=== PATIENT | male | born 1950 | race African-American/Black ===

== ENCOUNTER 2022-03-22 18:01 | Emergency (ER) | payer BC ==
[2022-03-22] MEDS ORDERED: ACETAMINOPHEN 1000 MG/100 ML BAG IVPB ONE (18:26)
[2022-03-22 18:28] VITALS: BP 152/75; PULSE 63; TEMP 98.2; BMI 27.8
[2022-03-22] MEDS ORDERED: ACETAMINOPHEN INJECTION 100 ML IVPB ONE (18:38)
[2022-03-22 19:05] LABS: BASO % 1.1 % (0-2.0); EOS % 3.5 % (0-4.5); HEMATOCRIT 40.6 % (35.4-49); HEMOGLOBIN 13.9 GM/dL (11.7-16.9); LYMPH % 47.6 % (8-40); MCH 32.9 pg (25.7-33.7); MCHC 34.4 g/dl (32.0-35.9); MEAN CELL VOLUME 95.7 fl (80-96); MEAN PLT VOLUME 8.6 fl (7.5-11.1); MONO % 8.4 % (3.8-10.2); NEUT % 39.4 % (42.8-82.8); PLATELET COUNT 134 10^3/uL (134-434); RBC 4.24 M/mm3 (4.00-5.60); RDW 13.7 % (11.9-15.9); WHITE BLOOD COUNT 4.5 K/mm3 (4.0-10.0)
[2022-03-22 19:23] LABS: CALCIUM 9.2 mg/dL (8.5-10.1)
[2022-03-22 19:24] LABS: ALBUMIN 3.9 g/dl (3.4-5.0)
[2022-03-22 19:27] LABS: CREATININE 1.1 mg/dL (0.55-1.3)
[2022-03-22 19:28] LABS: TOT PROT 6.6 g/dl (6.4-8.2)
[2022-03-22 19:29] LABS: BILIRUBIN,TOTAL 0.8 mg/dL (0.2-1)
== END 2022-03-22 20:42 | disposition home or self-care (01) ==
LOC: JER 18:01
PROC: 3E033NZ Introduction of Analgesics, Hypnotics, Sedatives into Peripheral Vein, Percutaneous Approach (ICD-10-PCS; principal; 2022-03-22)
DX: I10 Essential (primary) hypertension (principal)
CPT/HCPCS: 36415; 70450-TC; 80053; 84484; 85025; 99284-25

== ENCOUNTER 2022-04-09 18:49 | Emergency (ER) | payer BC, OTHER ==
[2022-04-09 18:56] VITALS: TEMP 98; BMI 27.4
[2022-04-09 23:00] LABS: BASO % 0.9 % (0-2.0); EOS % 2.9 % (0-4.5); HEMATOCRIT 44.6 % (35.4-49); LYMPH % 45.4 % (8-40); MCH 32.4 pg (25.7-33.7); MCHC 33.6 g/dl (32.0-35.9); MEAN CELL VOLUME 96.3 fl (80-96); MEAN PLT VOLUME 8.2 fl (7.5-11.1); MONO % 8.3 % (3.8-10.2); NEUT % 42.5 % (42.8-82.8); PLATELET COUNT 146 10^3/uL (134-434); RBC 4.63 M/mm3 (4.00-5.60); RDW 13.3 % (11.9-15.9); WHITE BLOOD COUNT 4.5 K/mm3 (4.0-10.0)
[2022-04-09 23:03] LABS: INR 1.25 (0.83-1.09); PROTHROMBIN TIME (PATIENT) 14.4 SEC (9.7-13.0)
[2022-04-09 23:06] LABS: ACTIVATED PTT 26.9 SECONDS (25.2-36.5)
[2022-04-09 23:23] LABS: CALCIUM 9.1 mg/dL (8.5-10.1)
[2022-04-09 23:24] LABS: ALBUMIN 3.7 g/dl (3.4-5.0); BLOOD UREA NITROGEN 12.3 mg/dL (7-18); MAGNESIUM 2.6 mg/dL (1.8-2.4)
[2022-04-09 23:27] LABS: CREATININE 1.1 mg/dL (0.55-1.3)
[2022-04-09 23:28] LABS: BILIRUBIN,TOTAL 0.7 mg/dL (0.2-1)
[2022-04-09 23:29] LABS: TOT PROT 6.6 g/dl (6.4-8.2)
[2022-04-10 00:31] VITALS: BP 131/69; PULSE 72
== END 2022-04-10 02:48 ==
LOC: JER 18:49
DX: I48.91 Unspecified atrial fibrillation (principal)
CPT/HCPCS: 36415; 74177-TC; 80053; 83735; 84484; 85025; 85610; 85730; 93005; 93010; 99285-25; Q9967

== ENCOUNTER 2023-08-08 08:10 | Emergency (ER) | payer BC, OTHER ==
[2023-08-08 08:41] VITALS: TEMP 98.2; BMI 27.1
[2023-08-08] MEDS ORDERED: FAMOTIDINE 20 MG/50 ML IVPB 20 MG/50 ML MG IVPB ONE (09:09)
[2023-08-08] MEDS ORDERED: MAG HYDROX/AL HYDROX/SIMETH -MYLANTA- ORAL SUSPENSION PO ONE (09:09)
[2023-08-08] MEDS ORDERED: ACETAMINOPHEN 1000 MG/100 ML BAG IVPB ONE (09:10)
[2023-08-08] MEDS ORDERED: MAG HYDROX/AL HYDROX/SIMETH 30 ML UNIT-DOSE CUP ONE (09:23)
[2023-08-08] MEDS ORDERED: ACETAMINOPHEN INJECTION 100 ML IVPB ONE (09:23)
[2023-08-08 09:24] LABS: INR 1.33 (0.83-1.09); PROTHROMBIN TIME (PATIENT) 15.4 SEC (9.7-13.0)
[2023-08-08] MEDS ORDERED: FAMOTIDINE 10 MG/ML VIAL IVPB ONE (09:24)
[2023-08-08 09:27] LABS: ACTIVATED PTT 28.3 SECONDS (25.2-36.5); BASO % 0.7 % (0-2.0); EOS % 1.6 % (0-4.5); HEMATOCRIT 44.3 % (35.4-49); HEMOGLOBIN 14.6 GM/dL (11.7-16.9); LYMPH % 22.9 % (8-40); MCH 31.9 pg (25.7-33.7); MCHC 32.9 g/dl (32.0-35.9); MEAN CELL VOLUME 96.9 fl (80-96); MEAN PLT VOLUME 8.6 fl (7.5-11.1); MONO % 7.6 % (3.8-10.2); NEUT % 67.2 % (42.8-82.8); PLATELET COUNT 176 10^3/uL (134-434); RBC 4.57 M/mm3 (4.00-5.60); RDW 13.7 % (11.9-15.9); WHITE BLOOD COUNT 5.9 K/mm3 (4.0-10.0)
[2023-08-08 09:42] LABS: CALCIUM 9.6 mg/dL (8.5-10.1)
[2023-08-08 09:43] LABS: BLOOD UREA NITROGEN 18.1 mg/dL (7-18); MAGNESIUM 2.6 mg/dL (1.8-2.4)
[2023-08-08 09:45] LABS: CREATININE 1.2 mg/dL (0.55-1.3)
[2023-08-08 09:47] LABS: BILIRUBIN,TOTAL 1.6 mg/dL (0.2-1); TOT PROT 7.2 g/dl (6.4-8.2)
[2023-08-08 12:00] VITALS: BP 133/57; PULSE 78; RESP 16
== END 2023-08-08 11:59 | disposition home or self-care (01) ==
LOC: JER 08:10
PROC: 3E033GC Introduction of Other Therapeutic Substance into Peripheral Vein, Percutaneous Approach (ICD-10-PCS; principal; 2023-08-08)
PROC: 3E033GC Introduction of Other Therapeutic Substance into Peripheral Vein, Percutaneous Approach (ICD-10-PCS; 2023-08-08)
DX: R07.9 Chest pain, unspecified (principal); R10.13 Epigastric pain
CPT/HCPCS: 36415; 71045-TC-FY; 80053; 83690; 83735; 84484; 85025; 85610; 85730; 93005; 93010; 99285-25

== ENCOUNTER 2024-01-28 23:56 | Emergency (ER) | payer OTHER ==
[2024-01-29 00:01] VITALS: BP 169/83; PULSE 58; RESP 18; TEMP 97; BMI 26.7
[2024-01-29] MEDS ORDERED: ACETAMINOPHEN INJECTION 100 ML IVPB ONE (01:35)
[2024-01-29] MEDS ORDERED: FAMOTIDINE 20 MG/50 ML IVPB 20 MG/50 ML MG IVPB ONE (01:36)
[2024-01-29] MEDS ORDERED: MAG HYDROX/AL HYDROX/SIMETH 30 ML UNIT-DOSE CUP ONE (01:36)
[2024-01-29] MEDS: MAG HYDROX/AL HYDROX/SIMETH 30 ML UNIT-DOSE CUP PO ONE (01:40)
[2024-01-29] MEDS: ACETAMINOPHEN 1000 MG/100 ML BAG IVPB ONE (01:40)
[2024-01-29] MEDS: FAMOTIDINE 20 MG/50 ML IVPB 20 MG/50 ML MG IVPB ONE (01:41)
[2024-01-29 01:44] LABS: EOS % 3.4 % (0-4.5); HEMATOCRIT 36.8 % (35.4-49); HEMOGLOBIN 12.4 GM/dL (11.7-16.9); LYMPH % 41.7 % (8-40); MCH 31.7 pg (25.7-33.7); MCHC 33.6 g/dl (32.0-35.9); MEAN CELL VOLUME 94.4 fl (80-96); MEAN PLT VOLUME 8.3 fl (7.5-11.1); MONO % 9.9 % (3.8-10.2); PLATELET COUNT 169 10^3/uL (134-434); RBC 3.89 M/mm3 (4.00-5.60); RDW 13.4 % (11.9-15.9); WHITE BLOOD COUNT 3.9 K/mm3 (4.0-10.0)
[2024-01-29 01:58] LABS: POTASSIUM 4.3 mmol/L (3.5-5.1)
[2024-01-29 02:00] LABS: BLOOD UREA NITROGEN 12.5 mg/dL (7-18)
[2024-01-29 02:06] LABS: BILIRUBIN,TOTAL 0.6 mg/dL (0.2-1); CALCIUM 9.1 mg/dL (8.5-10.1)
[2024-01-29 02:07] LABS: ALBUMIN 3.4 g/dl (3.4-5.0)
[2024-01-29 02:11] LABS: CREATININE 0.9 mg/dL (0.55-1.3)
[2024-01-29 02:13] LABS: TOT PROT 6.2 g/dl (6.4-8.2)
[2024-01-29] MEDS: ASPIRIN 81 MG CHEWABLE TABLETS PO ONE (03:07)
== END 2024-01-29 04:13 | disposition home or self-care (01) ==
LOC: JER 23:56
PROC: 3E033GC Introduction of Other Therapeutic Substance into Peripheral Vein, Percutaneous Approach (ICD-10-PCS; principal; 2024-01-29)
PROC: 3E033GC Introduction of Other Therapeutic Substance into Peripheral Vein, Percutaneous Approach (ICD-10-PCS; 2024-01-29)
DX: R00.2 Palpitations (principal); R12 Heartburn
CPT/HCPCS: 36415; 71045-TC-FY; 80053; 84484; 85025; 93005; 93010; 99285-25; J0131

== ENCOUNTER 2024-05-07 22:30 | Emergency (ER) | payer OTHER ==
[2024-05-07 22:38] VITALS: BP 158/64; PULSE 56; RESP 16; TEMP 98.1; BMI 25.7
[2024-05-07] MEDS ORDERED: ACETAMINOPHEN INJECTION 100 ML IVPB ONE (23:05)
[2024-05-07] MEDS ORDERED: MAG HYDROX/AL HYDROX/SIMETH 30 ML UNIT-DOSE CUP ONE (23:06)
[2024-05-07] MEDS ORDERED: FAMOTIDINE 20 MG/50 ML IVPB 20 MG/50 ML MG IVPB ONE (23:06)
[2024-05-07] MEDS: MAG HYDROX/AL HYDROX/SIMETH -MYLANTA- ORAL SUSPENSION PO ONE (23:58)
[2024-05-08 00:01] LABS: BASO % 0.8 % (0-2.0); EOS % 1.9 % (0-4.5); HEMATOCRIT 39.8 % (35.4-49); HEMOGLOBIN 13.2 GM/dL (11.7-16.9); LYMPH % 39.9 % (8-40); MCH 31.2 pg (25.7-33.7); MCHC 33.2 g/dl (32.0-35.9); MEAN PLT VOLUME 8.6 fl (7.5-11.1); NEUT % 49.4 % (42.8-82.8); PLATELET COUNT 152 10^3/uL (134-434); RBC 4.23 M/mm3 (4.00-5.60); RDW 15.9 % (11.9-15.9); WHITE BLOOD COUNT 4.9 K/mm3 (4.0-10.0)
[2024-05-08 00:20] LABS: POTASSIUM 4.3 mmol/L (3.5-5.1)
[2024-05-08 00:22] LABS: CALCIUM 9.5 mg/dL (8.5-10.1)
[2024-05-08 00:23] LABS: ALBUMIN 3.9 g/dl (3.4-5.0); BLOOD UREA NITROGEN 12.9 mg/dL (7-18); MAGNESIUM 2.2 mg/dL (1.8-2.4)
[2024-05-08 00:26] LABS: CREATININE 0.9 mg/dL (0.55-1.3)
[2024-05-08 00:27] LABS: BILIRUBIN,TOTAL 1.3 mg/dL (0.2-1); TOT PROT 6.9 g/dl (6.4-8.2)
[2024-05-08] MEDS: FAMOTIDINE 20 MG/50 ML IVPB 20 MG/50 ML MG IVPB ONE (00:34)
[2024-05-08] MEDS: ACETAMINOPHEN 1000 MG/100 ML BAG IVPB ONE (00:34)
[2024-05-08] MEDS: MAG HYDROX/AL HYDROX/SIMETH -MYLANTA- ORAL SUSPENSION PO ONE (00:35)
[2024-05-08] MEDS ORDERED: LIDOCAINE VISCOUS 2% ORAL/TOP 15 ML UNIT-DOSE CUP ONE (00:37)
[2024-05-08] MEDS ORDERED: FAMOTIDINE 10 MG TABLET ONE (00:37)
[2024-05-08] MEDS ORDERED: ACETAMINOPHEN 325 MG TABLET (FP) ONE (00:37)
[2024-05-08] MEDS: FAMOTIDINE 10 MG TABLET PO ONE (00:42)
[2024-05-08] MEDS: LIDOCAINE VISCOUS 2% ORAL/TOP 15 ML UNIT-DOSE CUP MM ONE (00:42)
[2024-05-08] MEDS: ACETAMINOPHEN 500 MG TABLET (FP) PO ONE (00:42)
== END 2024-05-08 01:56 | disposition home or self-care (01) ==
LOC: JER 22:30
DX: R07.89 Other chest pain (principal); Z20.822 Contact with and (suspected) exposure to COVID-19
CPT/HCPCS: 0241U-QW; 36415; 71045-TC-FY; 80053; 83735; 84484; 85025; 93005; 93010; 99285-25

== ENCOUNTER 2024-05-21 11:06 | Emergency (ER) | payer OTHER ==
[2024-05-21 11:13] VITALS: BP 146/75; PULSE 64; RESP 18; TEMP 98.4; BMI 25.8
[2024-05-21] MEDS ORDERED: MAG HYDROX/AL HYDROX/SIMETH 30 ML UNIT-DOSE CUP ONE (12:44)
[2024-05-21] MEDS ORDERED: FAMOTIDINE 20 MG TABLET ONE (12:44)
[2024-05-21] MEDS: MAG HYDROX/AL HYDROX/SIMETH 30 ML UNIT-DOSE CUP PO ONE (12:57)
[2024-05-21] MEDS: FAMOTIDINE 20 MG TABLET PO ONE (12:57)
[2024-05-21 13:11] LABS: BASO % 0.7 % (0-2.0); EOS % 2.2 % (0-4.5); HEMATOCRIT 40.6 % (35.4-49); HEMOGLOBIN 13.7 GM/dL (11.7-16.9); LYMPH % 44.1 % (8-40); MCH 31.4 pg (25.7-33.7); MCHC 33.6 g/dl (32.0-35.9); MEAN CELL VOLUME 93.3 fl (80-96); MEAN PLT VOLUME 8.7 fl (7.5-11.1); MONO % 9.2 % (3.8-10.2); NEUT % 43.8 % (42.8-82.8); PLATELET COUNT 153 10^3/uL (134-434); RBC 4.36 M/mm3 (4.00-5.60); WHITE BLOOD COUNT 4.3 K/mm3 (4.0-10.0)
[2024-05-21 13:16] LABS: POTASSIUM 5.6 mmol/L (3.5-5.1)
[2024-05-21 13:18] LABS: ALBUMIN 3.9 g/dl (3.4-5.0); BLOOD UREA NITROGEN 13.2 mg/dL (7-18); CALCIUM 9.7 mg/dL (8.5-10.1)
[2024-05-21 13:23] LABS: BILIRUBIN,TOTAL 0.8 mg/dL (0.2-1)
== END 2024-05-21 14:31 | disposition home or self-care (01) ==
LOC: JER 11:06
DX: K21.9 Gastro-esophageal reflux disease without esophagitis (principal); R10.13 Epigastric pain; R14.0 Abdominal distension (gaseous)
CPT/HCPCS: 36415; 71046-TC-FY; 80053; 84484; 85025; 93005; 93010; 99285-25

== ENCOUNTER 2024-06-25 10:33 | Emergency (ER) | payer OTHER ==
[2024-06-25 10:42] VITALS: BP 158/70; PULSE 69; RESP 18; TEMP 97.9; BMI 26.2
[2024-06-25 12:03] LABS: BASO % 0.7 % (0-2.0); EOS % 2.4 % (0-4.5); HEMATOCRIT 38.1 % (35.4-49); HEMOGLOBIN 12.8 GM/dL (11.7-16.9); MCH 31.8 pg (25.7-33.7); MCHC 33.6 g/dl (32.0-35.9); MEAN CELL VOLUME 94.4 fl (80-96); MEAN PLT VOLUME 8.3 fl (7.5-11.1); MONO % 10.5 % (3.8-10.2); NEUT % 52.4 % (42.8-82.8); PLATELET COUNT 161 10^3/uL (134-434); RBC 4.03 M/mm3 (4.00-5.60); RDW 14.3 % (11.9-15.9); WHITE BLOOD COUNT 3.9 K/mm3 (4.0-10.0)
[2024-06-25] MEDS ORDERED: PANTOPRAZOLE 40 MG TABLET PO ONE (12:03)
[2024-06-25] MEDS ORDERED: FAMOTIDINE 20 MG TABLET ONE (12:03)
[2024-06-25] MEDS: PANTOPRAZOLE 40 MG TABLET PO ONE (12:06)
[2024-06-25] MEDS: FAMOTIDINE 20 MG TABLET PO ONE (12:06)
[2024-06-25 12:31] LABS: POTASSIUM 4.2 mmol/L (3.5-5.1)
[2024-06-25 12:35] LABS: ALBUMIN 3.5 g/dl (3.4-5.0); BLOOD UREA NITROGEN 10.6 mg/dL (7-18); CALCIUM 9.4 mg/dL (8.5-10.1)
[2024-06-25 12:39] LABS: BILIRUBIN,TOTAL 0.8 mg/dL (0.2-1); TOT PROT 6.3 g/dl (6.4-8.2)
== END 2024-06-25 13:02 | disposition home or self-care (01) ==
LOC: JER 10:33
DX: K21.9 Gastro-esophageal reflux disease without esophagitis (principal)
CPT/HCPCS: 36415; 80053; 83690; 84484; 85025; 93005; 93010; 99284-25

== ENCOUNTER 2024-08-12 23:09 | Emergency (ER) | payer OTHER ==
[2024-08-12 23:14] VITALS: BP 152/84; PULSE 56; RESP 20; TEMP 97.9; BMI 25.4
[2024-08-13] MEDS ORDERED: FAMOTIDINE 20 MG/50 ML IVPB 20 MG/50 ML MG IVPB ONE (00:33)
[2024-08-13] MEDS ORDERED: MAG HYDROX/AL HYDROX/SIMETH 30 ML UNIT-DOSE CUP ONE (00:33)
[2024-08-13] MEDS: MAG HYDROX/AL HYDROX/SIMETH 30 ML UNIT-DOSE CUP PO ONE (01:00)
[2024-08-13] MEDS: FAMOTIDINE 20 MG/50 ML IVPB 20 MG/50 ML MG IVPB ONE (02:23)
[2024-08-13] MEDS ORDERED: FAMOTIDINE 10 MG TABLET ONE (02:24)
[2024-08-13] MEDS: FAMOTIDINE 10 MG TABLET PO ONE (02:29)
== END 2024-08-13 03:09 | disposition home or self-care (01) ==
LOC: JER 23:09
DX: K21.9 Gastro-esophageal reflux disease without esophagitis (principal); R10.13 Epigastric pain
CPT/HCPCS: 84484; 93005; 93010; 99284-25

== ENCOUNTER 2025-01-08 13:40 | Observation (INO) | payer OTHER ==
[2025-01-08 14:21] VITALS: BMI 25.5
[2025-01-08] MEDS ORDERED: MAG HYDROX/AL HYDROX/SIMETH 30 ML UNIT-DOSE CUP ONE (15:16)
[2025-01-08] MEDS ORDERED: ACETAMINOPHEN INJECTION 100 ML ONE (15:19)
[2025-01-08 15:21] LABS: HEMATOCRIT 39.9 % (40.1-51.0); HEMOGLOBIN 13.2 g/dL (13.7-17.5); MCHC 33.1 g/dl (32.3-36.5); MEAN CELL VOLUME 96.8 fl (79.0-92.2); MEAN PLT VOLUME 9.8 fl (9.4-12.4); PLATELET COUNT 148 x10^3/uL (163-337); RDW 12.8 % (12.2-16.6)
[2025-01-08 15:28] LABS: INR 1.22 (0.83-1.09); PROTHROMBIN TIME (PATIENT) 13.4 SEC (9.7-13.0)
[2025-01-08] MEDS: ACETAMINOPHEN 1000 MG/100 ML BAG IVPB ONE (15:31)
[2025-01-08] MEDS: MAG HYDROX/AL HYDROX/SIMETH 30 ML UNIT-DOSE CUP PO ONE (15:31)
[2025-01-08 15:42] LABS: POTASSIUM 5.7 mmol/L (3.5-5.1)
[2025-01-08 15:44] LABS: ALBUMIN 3.6 g/dl (3.4-5.0); BLOOD UREA NITROGEN 14.1 mg/dL (7-18); CALCIUM 9.5 mg/dL (8.5-10.1); MAGNESIUM 2.4 mg/dL (1.8-2.4)
[2025-01-08 15:47] LABS: CREATININE 0.9 mg/dL (0.55-1.3)
[2025-01-08 15:49] LABS: BILIRUBIN,TOTAL 0.7 mg/dL (0.2-1); TOT PROT 6.8 g/dl (6.4-8.2)
[2025-01-08] MEDS ORDERED: FAMOTIDINE 20 MG/50 ML IVPB 20 MG/50 ML MG IVPB ONE (16:13)
[2025-01-08] MEDS: FAMOTIDINE 20 MG/50 ML IVPB 20 MG/50 ML MG IVPB ONE (16:27)
[2025-01-08 16:31] LABS: URINE APPEARANCE CLEAR; URINE BILIRUBIN NEGATIVE (NEGATIVE); URINE COLOR YELLOW; URINE GLUCOSE (UA) NEGATIVE (NEGATIVE); URINE KETONE NEGATIVE (NEGATIVE); URINE LEUK ESTERASE NEGATIVE (NEGATIVE); URINE NITRITE NEGATIVE (NEGATIVE); URINE PROTEIN NEGATIVE (NEGATIVE); URINE UROBILINOGEN 0.2 mg/dL (0.2-1.0)
[2025-01-08 16:37] LABS: HCV DIAGNOSTIC IN-HOUSE W/RFLX NON-REACTIVE (NONREACTIVE); HIV INTERPRETATION NEGATIVE (NEGATIVE)
[2025-01-08] MEDS ORDERED: SODIUM ZIRCONIUM CYCLOSILICATE (LOKELMA) 5 GM PACKET PO ONE (17:23)
[2025-01-08 18:04] LABS: BLOOD UREA NITROGEN 14.5 mg/dL (7-18); CALCIUM 9.4 mg/dL (8.5-10.1); CREATININE 0.9 mg/dL (0.55-1.3); POTASSIUM 4.8 mmol/L (3.5-5.1)
[2025-01-08 18:05] LABS: ALBUMIN 3.5 g/dl (3.4-5.0); BILIRUBIN,TOTAL 0.7 mg/dL (0.2-1); TOT PROT 6.2 g/dl (6.4-8.2)
[2025-01-08] MEDS ORDERED: ATORVASTATIN CA 40 MG TABLET (FP) ONE (18:20)
[2025-01-08] MEDS ORDERED: ENOXAPARIN NA (PORCINE) 40 MG/0.4 ML DISP.SYRIN SQ ONE (18:21)
[2025-01-08] MEDS: ATORVASTATIN CA 40 MG TABLET (FP) PO ONE (18:35)
[2025-01-08] MEDS: ENOXAPARIN NA (PORCINE) 40 MG/0.4 ML DISP.SYRIN SQ SCH (18:35)
[2025-01-08 18:41] VITALS: BP 130/63; PULSE 68; RESP 18; TEMP 97.6
== END 2025-01-08 19:49 | disposition home or self-care (01) ==
LOC: JER 13:40 → JERBED 18:10
PROVIDERS: ADMIT Internal Medicine; ATTEND Nurse Practitioner Family
PROC: 3E033NZ Introduction of Analgesics, Hypnotics, Sedatives into Peripheral Vein, Percutaneous Approach (ICD-10-PCS; principal; 2025-01-08)
PROC: 3E023GC Introduction of Other Therapeutic Substance into Muscle, Percutaneous Approach (ICD-10-PCS; 2025-01-08)
PROC: 3E033GC Introduction of Other Therapeutic Substance into Peripheral Vein, Percutaneous Approach (ICD-10-PCS; 2025-01-08)
DX: R07.89 Other chest pain (principal); R20.8 Other disturbances of skin sensation; K21.9 Gastro-esophageal reflux disease without esophagitis; I10 Essential (primary) hypertension; E78.5 Hyperlipidemia, unspecified; N40.0 Benign prostatic hyperplasia without lower urinary tract symptoms; I48.91 Unspecified atrial fibrillation; Z79.01 Long term (current) use of anticoagulants
CPT/HCPCS: 36415; 71046-TC-FY; 80053; 81003; 82550; 82553; 83735; 84484; 85027; 85610; 85730; 86803; 87086; 87389; 93005; 93010; 96365; 96372; 96375; 99285-25; G0378; J0131

== ENCOUNTER 2025-01-13 11:14 | Emergency (ER) | payer OTHER ==
[2025-01-13 11:21] VITALS: BP 130/69; PULSE 68; RESP 16; TEMP 98.4; BMI 23.4
[2025-01-13 12:37] LABS: EPI CELLS 4 /uL (0-25.1); HYALINE CASTS 0 /uL (0-3.1); PH,URINE 5.5 (5.0-8.0); URINE APPEARANCE CLEAR; URINE BACTERIA 0 /uL (0-1359); URINE BILIRUBIN NEGATIVE (NEGATIVE); URINE COLOR YELLOW; URINE GLUCOSE (UA) NEGATIVE (NEGATIVE); URINE KETONE NEGATIVE (NEGATIVE); URINE LEUK ESTERASE NEGATIVE (NEGATIVE); URINE NITRITE NEGATIVE (NEGATIVE); URINE PROTEIN NEGATIVE (NEGATIVE); URINE RBC 12 /uL (0-23.9); URINE UROBILINOGEN 0.2 mg/dL (0.2-1.0); URINE WBC 2 /uL (0-25.8)
[2025-01-13 12:55] LABS: HEMATOCRIT 39.6 % (40.1-51.0); HEMOGLOBIN 13.3 g/dL (13.7-17.5); MCHC 33.6 g/dl (32.3-36.5); MEAN CELL VOLUME 97.8 fl (79.0-92.2); MEAN PLT VOLUME 10.4 fl (9.4-12.4); PLATELET COUNT 158 x10^3/uL (163-337); RDW 12.6 % (12.2-16.6)
[2025-01-13] MEDS ORDERED: FAMOTIDINE 20 MG TABLET ONE ×2 (12:59→13:30)
[2025-01-13] MEDS ORDERED: MAG HYDROX/AL HYDROX/SIMETH 30 ML UNIT-DOSE CUP ONE ×2 (12:59→13:30)
[2025-01-13 13:18] LABS: POTASSIUM 4.3 mmol/L (3.5-5.1)
[2025-01-13 13:20] LABS: CALCIUM 9.4 mg/dL (8.5-10.1)
[2025-01-13 13:21] LABS: ALBUMIN 3.6 g/dl (3.4-5.0); BLOOD UREA NITROGEN 11.4 mg/dL (7-18)
[2025-01-13 13:24] LABS: CREATININE 0.9 mg/dL (0.55-1.3)
[2025-01-13 13:25] LABS: BILIRUBIN,TOTAL 1.1 mg/dL (0.2-1); TOT PROT 6.1 g/dl (6.4-8.2)
[2025-01-13] MEDS: FAMOTIDINE 20 MG TABLET PO ONE (13:31)
[2025-01-13] MEDS: MAG HYDROX/AL HYDROX/SIMETH 30 ML UNIT-DOSE CUP PO ONE (13:31)
== END 2025-01-13 14:59 | disposition home or self-care (01) ==
LOC: JER 11:14
DX: K21.9 Gastro-esophageal reflux disease without esophagitis (principal); I48.20 Chronic atrial fibrillation, unspecified; R10.13 Epigastric pain; R30.0 Dysuria
CPT/HCPCS: 36415; 71045-TC-FY; 80053; 81003; 84484; 85027; 87086; 93005; 93010; 99285-25

== ENCOUNTER 2025-03-30 08:45 | Emergency (ER) | payer OTHER ==
[2025-03-30 09:10] VITALS: TEMP 98; BMI 25.4
[2025-03-30] MEDS ORDERED: FAMOTIDINE 20 MG/50 ML IVPB 20 MG/50 ML MG IVPB ONE (09:35)
[2025-03-30] MEDS ORDERED: ACETAMINOPHEN INJECTION 100 ML ONE (09:35)
[2025-03-30] MEDS: FAMOTIDINE 20 MG/50 ML IVPB 20 MG/50 ML MG IVPB ONE (10:19)
[2025-03-30] MEDS: ACETAMINOPHEN 1000 MG/100 ML BAG IVPB ONE (10:19)
[2025-03-30 10:23] LABS: ABSOLUTE IMMATURE GRANULOCYTES 0.01 x10^3/uL (0.0-0.031); BASOPHILS # 0.03 x10^3/uL (0.01-0.08); EOSINOPHIL % 2.9 % (0.8-7.0); EOSINOPHILS # 0.13 x10^3/uL (0.04-0.54); HEMATOCRIT 40.9 % (40.1-51.0); HEMOGLOBIN 13.3 g/dL (13.7-17.5); MCHC 32.5 g/dl (32.3-36.5); MEAN CELL VOLUME 98.1 fl (79.0-92.2); MEAN PLT VOLUME 9.8 fl (9.4-12.4); MONOCYTE # 0.42 x10^3/uL (0.30-0.82); MONOCYTE % 9.3 % (5.3-12.2); PLATELET COUNT 145 x10^3/uL (163-337); RDW 12.8 % (12.2-16.6)
[2025-03-30 10:24] LABS: PH,URINE 5.5 (5.0-8.0); URINE APPEARANCE CLEAR; URINE BILIRUBIN NEGATIVE (NEGATIVE); URINE COLOR YELLOW; URINE GLUCOSE (UA) NEGATIVE (NEGATIVE); URINE KETONE TRACE (NEGATIVE); URINE LEUK ESTERASE NEGATIVE (NEGATIVE); URINE NITRITE NEGATIVE (NEGATIVE); URINE PROTEIN NEGATIVE (NEGATIVE); URINE UROBILINOGEN 0.2 mg/dL (0.2-1.0)
[2025-03-30 10:32] LABS: INR 1.39 (0.83-1.09); PROTHROMBIN TIME (PATIENT) 15.3 SEC (9.7-13.0)
[2025-03-30 10:35] LABS: ACTIVATED PTT 29.3 SECONDS (25.2-36.5)
[2025-03-30 10:44] LABS: POTASSIUM 5.6 mmol/L (3.5-5.1)
[2025-03-30 10:47] LABS: ALBUMIN 3.5 g/dl (3.4-5.0); BLOOD UREA NITROGEN 13.5 mg/dL (7-18); CALCIUM 9.3 mg/dL (8.5-10.1)
[2025-03-30 10:58] LABS: TOT PROT 6.7 g/dl (6.4-8.2)
[2025-03-30] MEDS ORDERED: SUCRALFATE 1 GM TABLET (FP) ONE (11:41)
[2025-03-30] MEDS ORDERED: MAG HYDROX/AL HYDROX/SIMETH 30 ML UNIT-DOSE CUP ONE (11:41)
[2025-03-30] MEDS: SUCRALFATE 1 GM TABLET (FP) PO ONE (11:45)
[2025-03-30] MEDS: MAG HYDROX/AL HYDROX/SIMETH 30 ML UNIT-DOSE CUP PO ONE (11:45)
[2025-03-30 12:43] VITALS: BP 167/90; PULSE 61; RESP 17
[2025-03-30 15:09] LABS: HCV DIAGNOSTIC IN-HOUSE W/RFLX NON-REACTIVE (NONREACTIVE)
[2025-03-30 15:10] LABS: HIV INTERPRETATION NEGATIVE (NEGATIVE)
== END 2025-03-30 13:23 | disposition home or self-care (01) ==
LOC: JER 08:45
PROC: 3E033GC Introduction of Other Therapeutic Substance into Peripheral Vein, Percutaneous Approach (ICD-10-PCS; principal; 2025-03-30)
PROC: 3E033NZ Introduction of Analgesics, Hypnotics, Sedatives into Peripheral Vein, Percutaneous Approach (ICD-10-PCS; 2025-03-30)
DX: R10.13 Epigastric pain (principal); R10.12 Left upper quadrant pain; T78.1XXA Other adverse food reactions, not elsewhere classified, initial encounter
CPT/HCPCS: 0241U-QW; 36415; 71045-TC-FY; 80053; 81003; 83690; 84484; 85025; 85610; 85730; 86803; 87086; 87389; 93005; 93010; 96365; 96375; 99285-25

== ENCOUNTER 2025-06-22 16:35 | Emergency (ER) | payer OTHER ==
[2025-06-22 16:42] VITALS: BP 161/81; PULSE 56; RESP 16; TEMP 98.3; BMI 23.9
== END 2025-06-22 19:05 | disposition home or self-care (01) ==
LOC: JER 16:35
DX: I10 Essential (primary) hypertension (principal)
CPT/HCPCS: 99283-25

== ENCOUNTER 2025-06-25 20:32 | Emergency (ER) | payer OTHER ==
[2025-06-25 20:37] VITALS: RESP 18; TEMP 98.3; BMI 23.9
[2025-06-25 21:31] LABS: ABSOLUTE IMMATURE GRANULOCYTES 0.01 x10^3/uL (0.0-0.031); BASOPHILS # 0.05 x10^3/uL (0.01-0.08); EOSINOPHIL % 2.8 % (0.8-7.0); EOSINOPHILS # 0.11 x10^3/uL (0.04-0.54); MCHC 33.0 g/dl (32.3-36.5); MEAN CELL VOLUME 96.8 fl (79.0-92.2); MEAN PLT VOLUME 9.7 fl (9.4-12.4); MONOCYTE # 0.33 x10^3/uL (0.30-0.82); MONOCYTE % 8.5 % (5.3-12.2); RDW 12.9 % (12.2-16.6)
[2025-06-25 21:36] LABS: INR 1.28 (0.83-1.09); PROTHROMBIN TIME (PATIENT) 14.0 SEC (9.7-13.0)
[2025-06-25 21:39] LABS: ACTIVATED PTT 28.9 SECONDS (25.2-36.5)
[2025-06-25 21:49] LABS: GLUCOSE,RANDOM 97.0 mg/dL (74-106)
[2025-06-25 21:50] LABS: TOT PROT 6.3 g/dl (6.4-8.2)
[2025-06-25 21:51] LABS: CO2 25.0 mmol/L (21-32)
[2025-06-25 21:53] LABS: ALK PHOS 51.0 U/L (40-150)
[2025-06-25 21:55] LABS: SGOT/AST 22.0 U/L (5-34); SGPT/ALT 15.0 U/L (0-55)
[2025-06-25 21:56] LABS: CREATININE 0.96 mg/dL (0.55-1.3)
[2025-06-25 22:17] LABS: HCV DIAGNOSTIC IN-HOUSE W/RFLX NON-REACTIVE (NONREACTIVE)
[2025-06-25 22:18] LABS: HIV INTERPRETATION NEGATIVE (NEGATIVE)
[2025-06-25] MEDS ORDERED: ACETAMINOPHEN INJECTION 100 ML ONE (22:22)
[2025-06-25] MEDS: ACETAMINOPHEN 1000 MG/100 ML BAG IVPB ONE (22:34)
[2025-06-25 22:57] VITALS: BP 158/75; PULSE 49
[2025-06-25 23:00] LABS: URINE APPEARANCE CLEAR; URINE BILIRUBIN NEGATIVE (NEGATIVE); URINE COLOR YELLOW; URINE GLUCOSE (UA) NEGATIVE (NEGATIVE); URINE KETONE NEGATIVE (NEGATIVE); URINE LEUK ESTERASE NEGATIVE (NEGATIVE); URINE NITRITE NEGATIVE (NEGATIVE); URINE PROTEIN NEGATIVE (NEGATIVE); URINE UROBILINOGEN 1.0 mg/dL (0.2-1.0)
== END 2025-06-26 04:23 | disposition home or self-care (01) ==
LOC: JER 20:32
PROC: 3E033NZ Introduction of Analgesics, Hypnotics, Sedatives into Peripheral Vein, Percutaneous Approach (ICD-10-PCS; principal; 2025-06-25)
DX: S50.811A Abrasion of right forearm, initial encounter (principal); R51.9 Headache, unspecified; R07.81 Pleurodynia; R42 Dizziness and giddiness; R00.1 Bradycardia, unspecified; M54.50 Low back pain, unspecified; W01.198A Fall on same level from slipping, tripping and stumbling with subsequent striking against other object, initial encounter; Y92.009 Unspecified place in unspecified non-institutional (private) residence as the place of occurrence of the external cause
CPT/HCPCS: 36415; 70450-TC; 71045-TC-FY; 72125-TC; 72131-TC; 80053; 81003; 83735; 84484; 85025; 85610; 85730; 86803; 87086; 87389; 93005; 93010; 99285-25